=== PATIENT | male | born 1965 | race American Indian/Alaskan Native ===

== ENCOUNTER 2016-11-25 08:30 | Observation (INO) | payer MEDICAID ==
[2016-11-25] MEDS ORDERED: Sodium Chloride 0.9% 1,000 ML IV STA ×2 (09:22→10:10)
--- NOTE | 2016-11-25 09:27 | ED PDOC ---
Arrival/HPI - General Chief Complaint: Dizziness/Lightheaded Time Seen by Provider: 11/25/16 08:53 Historian: Patient - History of Present Illness Narrative History of Present Illness (Text): 11/25/16 09:05 A 51 year old male, whose past medical history includes hypertension and hyperlipidemia, presents to the emergency department complaining of dizziness for the past 6 days. Dizziness is described as the room spinning sensation and lightheadedness. Patient notes worsening of symptoms when standing up and better with rest. He notes a dry cough, non bloody watery diarrhea and decrease appetite for the past 6 days. Patient denies any nausea, vomiting, itchy throat , urinary symptoms or other complaints at this time. PMD: Dr. Cardozo Time/Duration: Other (6 days) Symptom Onset: Sudden Symptom Course: Unchanged Quality: Other Activities at Onset: Rest Modifying Factors (Text): worse when standing and better with rest Context: Home Associated Symptoms (Text): dry cough, decrease appetite and diarrhea Past Medical History - Provider Review Nursing Documentation Reviewed: Yes - Infectious Disease Hx of Infectious Diseases: None - Tetanus Immunization Tetanus Immunization: Unknown - Cardiac Hx Hypertension: Yes Hx Pacemaker: No - Pulmonary Hx Asthma: No Hx Chronic Obstructive Pulmonary Disease (COPD): No Hx Emphysema: No - Neurological HX Cerebrovascular Accident: No Hx Dementia: No Hx Seizures: No - Renal Hx Renal Disorder: No - Endocrine/Metabolic Hx Endocrine Disorders: No - Hematological/Oncological Hx Anemia: No Hx Cancer: No - Musculoskeletal/Rheumatological Hx Musculoskeletal Disorders: No - Gastrointestinal Hx Gastrointestinal Disorders: No - Psychiatric Hx Depression: No Hx Emotional Abuse: No Hx Physical Abuse: No Hx Substance Use: Yes (off and on) - Past Surgical History Past Surgical History: No Previous - Surgical History Hx Gastric Bypass Surgery: No - Suicidal Assessment Feels Threatened In Home Enviroment: No Family/Social History - Physician Review Nursing Documentation Reviewed: Yes Family/Social History: Unknown Family HX Smoking Status: marijuana Hx Alcohol Use: Yes Hx Substance Use: Yes (off and on) Substance used: marijuana Hx Substance Use Treatment: No Allergies/Home Meds Allergies/Adverse Reactions: Allergies Penicillins Allergy (Verified 11/25/16 08:55) RASH Home Medications: Home Meds Medication Instructions Recorded Confirmed Allopurinol [Zyloprim] 300 mg PO DAILY 11/25/16 11/25/16 Colchicine [Colchicine] 0.6 mg PO DAILY 11/25/16 11/25/16 Enalapril Maleate [Vasotec] 20 mg PO BID 11/25/16 11/25/16 Metoprolol Tartrate [Lopressor] 50 mg PO BID 11/25/16 11/25/16 Simvastatin [Zocor] 40 mg PO DAILY 11/25/16 11/25/16 Review of Systems - Physician Review All systems were reviewed & negative as marked: Yes - Review of Systems Respiratory: Cough. absent: Sputum Gastrointestinal: Diarrhea, Appetite Changes. absent: Nausea, Vomiting Genitourinary Male: absent: Dysuria, Frequency, Hematuria, Urinary Output Changes Neurological: Dizziness Physical Exam Vital Signs Reviewed: Yes Vital Signs Temp Pulse Resp BP Pulse Ox 11/25/16 13:30 70 16 112/70 98 11/25/16 11:37 65 16 106/65 97 11/25/16 08:49 97.7 F 105 H 20 79/56 L 100 Temperature: Afebrile Blood Pressure: Hypotensive Pulse: Tachycardic Respiratory Rate: Normal Appearance: Positive for: Well-Appearing, Non-Toxic, Comfortable Pain Distress: None Mental Status: Positive for: Alert and Oriented X 3 - Systems Exam Head: Present: Atraumatic, Normocephalic Pupils: Present: PERRL Extroacular Muscles: Present: EOMI Conjunctiva: Present: Normal Mouth: Present: Moist Mucous Membranes Neck: Present: Normal Range of Motion Respiratory/Chest: Present: Clear to Auscultation, Good Air Exchange. No: Respiratory Distress, Accessory Muscle Use Cardiovascular: Present: Normal S1, S2, Tachycardic. No: Murmurs Abdomen: Present: Normal Bowel Sounds. No: Tenderness, Distention, Peritoneal Signs Back: Present: Normal Inspection Upper Extremity: Present: Normal Inspection. No: Cyanosis, Edema Lower Extremity: Present: Normal Inspection. No: Edema Neurological: Present: GCS=15, CN II-XII Intact, Speech Normal, Motor Func Grossly Intact, Normal Sensory Function Skin: Present: Warm, Dry, Normal Color. No: Rashes Psychiatric: Present: Alert, Oriented x 3, Normal Insight, Normal Concentration Medical Decision Making ED Course and Treatment: 11/25/16 09:05 Impression: A 51 year old male with dizziness, cough, diarrhea and decrease appetite. Differential Diagnosis include but are not limited to: Viral illness vs. gastroenteritis vs. vertigo Plan: -- EKG -- Labs -- Pepcid and IV Fluids -- Reassess and disposition Progress Notes: EKG: Ordered, reviewed, and independently interpreted the EKG. Rate : 80 BPM Rhythm : NSR Interpretation : No ST-segment elevations or depressions, no T-wave inversions, normal intervals. 11/25/16 11:36 11:[address] Beasley, who is aware and agrees with the plan to place the patient in observation in Med/Surg for Dehydration, Acute renal failure and diarrhea. Abdomen/Pelvis CT ordered. I have discussed the results and plan with the patient, who expresses understanding. Patient given the opportunity to ask question, all questions were answered and there is agreement with the plan to be admitted to the hospital. - Lab Interpretations Lab Results: 11/25/16 09:35 11/25/16 09:35 Lab Results 11/25/16 11:30: Uric Acid 10.5 H, Total Creatine Kinase 461 H, CK-MB (CK-2) 2.2 , CK-MB (CK-2) % Cancelled, Triglycerides 403 H, Cholesterol 258 H, LDL Cholesterol Direct 121, HDL Cholesterol 26 L 11/25/16 11:30: Urine Osmolality 285, Ur Random Sodium 61 11/25/16 11:30: Urine Opiates Screen Negative, Urine Methadone Screen Negative, Ur Barbiturates Screen Negative, Ur Phencyclidine Scrn Negative, Ur Amphetamines Screen Negative, U Benzodiazepines Scrn Negative, U Oth Cocaine Metabols Negative, U Cannabinoids Screen Negative 11/25/16 11:00: Amylase 224 H 11/25/16 11:00: Alcohol, Quantitative < 10 11/25/16 09:35: Sodium 131 L, Potassium 4.6, Chloride 99, Carbon Dioxide 15 L, Anion Gap 22 H, BUN 51 H, Creatinine 3.9 H, Est GFR ( Amer) 20, Est GFR ( Non-Af Amer) 16, Random Glucose 107, Calcium 9.1, Total Bilirubin 0.8, AST 50, ALT 54, Alkaline Phosphatase 64, Total Protein 8.7 H, Albumin 4.3, Globulin 4.4 , Albumin/Globulin Ratio 1.0 L, Lipase 360 H 11/25/16 09:35: WBC 6.3, RBC 4.99, Hgb 16.5, Hct 46.6, MCV 93.4, MCH 33.1, MCHC 35.4, RDW 13.7, Plt Count 216, MPV 11.2 H, Gran % 55.8, Lymph % (Auto) 27.0, [place] % (Auto) 16.5 H, Eos % (Auto) 0.2 L, Baso % (Auto) 0.5, Gran # 3.50, Lymph # 1.7, [place] # 1.0 H, Eos # 0.0, Baso # 0.03 I have reviewed the lab results: Yes - RAD Interpretation Radiology Orders: 11/25/16 11:35 ABD & PELVIS PO CONTRAST ONLY [CT] Stat - Medication Orders Current Medication Orders: Acetaminophen (Tylenol 325mg Tab) 650 mg PO Q6H PRN PRN Reason: Fever >100.4 F Albuterol/Ipratropium (Duoneb 3 Mg/0.5 Mg (3 Ml) Ud) 3 ml IH Q2H PRN PRN Reason: Shortness of Breath Atorvastatin Calcium (Lipitor) 20 mg PO DIN IGGY Guaifenesin (Robitussin) 200 mg PO Q4H PRN PRN Reason: Cough and congestion Sodium Chloride (Sodium Chloride 0.9%) 1,000 mls @ 125 mls/hr IV .Q8H IGGY Last Admin: 11/25/16 14:57 Dose: 125 mls/hr Metronidazole (Flagyl) 500 mg PO Q8 IGGY PRN Reason: Protocol Ondansetron HCl (Zofran Inj) 4 mg IVP Q6H PRN PRN Reason: Nausea/Vomiting Pantoprazole Sodium (Protonix Inj) 40 mg IVP DAILY [facility] Discontinued Medications Atorvastatin Calcium (Lipitor) 10 mg PO DIN IGGY Famotidine (Pepcid) 20 mg IVP STAT STA Stop: 11/25/16 09:23 Last Admin: 11/25/16 09:53 Dose: 20 mg Sodium Chloride (Sodium Chloride 0.9%) 1,000 mls @ 1,000 mls/hr IV .Q1H STA Stop: 11/25/16 10:21 Last Admin: 11/25/16 09:53 Dose: 1,000 mls/hr Sodium Chloride (Sodium Chloride 0.9%) 1,000 mls @ 999 mls/hr IV .Q1H1M STA Stop: 11/25/16 11:10 Last Admin: 11/25/16 11:37 Dose: 999 mls/hr Sodium Chloride (Sodium Chloride 0.9%) 1,000 mls @ 100 mls/hr IV .Q10H IGGY Levofloxacin/Dextrose (Levaquin 500mg) 500 mg in 100 mls @ 100 mls/hr IVPB DAILY IGGY Iohexol (Omnipaque 240 (50 Ml)) Confirm Administered Dose 50 ml .ROUTE .STK-MED ONE Stop: 11/25/16 11:38 Iohexol (Omnipaque 350 100 Ml) Confirm Administered Dose 350 mg .ROUTE .STK-MED ONE Stop: 11/25/16 13:31 Non-Formulary Medication (Simvastatin [Zocor]) 40 mg PO DAILY IGGY - Scribe Statement The provider has reviewed the documentation as recorded by the Marina Fink Provider Scribe Attestation: All medical record entries made by the Marina were at my direction and personally dictated by me. I have reviewed the chart and agree that the record accurately reflects my personal performance of the history, physical exam, medical decision making, and the department course for this patient. I have also personally directed, reviewed, and agree with the discharge instructions and disposition. Disposition/Present on Arrival - Present on Arrival Any Indicators Present on Arrival: No History of DVT/PE: No History of Uncontrolled Diabetes: No Urinary Catheter: No History of Decub. Ulcer: No History Surgical Site Infection Following: None - Disposition Have Diagnosis and Disposition been Completed?: Yes Diagnosis: Enteritis, Acute renal failure Disposition: HOSPITALIZED Disposition Time: 11:36 Patient Plan: Observation Condition: FAIR
[2016-11-25 09:46] LABS: ADD MANUAL DIFF? NO
[2016-11-25 09:48] LABS: BASO # 0.03 [, K/mm3] (0.0-2.0); BASO % 0.5 % (0.0-3.0); EOS % 0.2 % (1.5-5.0); GRAN % 55.8 % (50.0-68.0); HEMATOCRIT 46.6 % (42.0-52.0); LYMPH # 1.7 (1.2-3.4); MEAN CELL VOLUME 93.4 fL (80.0-105.0); MEAN CORPUSCULAR HEMOGLOBIN 33.1 pg (25.0-35.0); MEAN CORPUSCULAR HGB CONC 35.4 g/dl (31.0-37.0); MEAN PLATELET VOLUME 11.2 fl (7.0-11.0); MONO % 16.5 % (1.0-6.0); PLATELET COUNT 216 [, 10^3/uL] (120.0-450.0); RED CELL DISTRIBUTION WIDTH 13.7 % (11.5-14.5); WHITE BLOOD COUNT 6.3 [, 10^3/ul] (4.5-11.0)
[2016-11-25 09:59] LABS: BILIRUBIN,TOTAL 0.8 mg/dL (0.2-1.3); CALCIUM 9.1 mg/dL (8.4-10.5); POTASSIUM 4.6 mmol/L (3.6-5.0); TOTAL PROTEIN 8.7 g/dL (5.8-8.3)
[2016-11-25] MEDS ORDERED: Iohexol 240 (50 ml) ONE (11:37)
[2016-11-25] MEDS ORDERED: Albuterol-Ipratrop 3 mg / 0.5 (3 ml) UD IH PRN (12:23)
[2016-11-25] MEDS ORDERED: guaiFENesin 200 mg/10 ml Syrup UD PO PRN (12:27)
[2016-11-25] MEDS ORDERED: Sodium Chloride 0.9% 1,000 ML IV SCH (12:30)
[2016-11-25] MEDS ORDERED: Iohexol 350 MG/100 ML VIAL ONE (13:30)
--- NOTE | 2016-11-25 13:46 | CP.PCM.HP ---
<Angela Reis - Last Filed: 11/25/16 14:23> History of Present Illness - History of Present Illness History of Present Illness: This is a 51Y M with PMH HTN, HLD, gout and medical non-compliance came to the ED for diarrhea and dizziness for the past 6 days. The dizziness began this week and was worse with standing up from sitting down. He states that he also had some URI symptoms, cough and congestion with yellow mucus. The patient saw Dr. Cardozo on November 23 for these symptoms. She prescribed him a Z-pack, Ventolin inhaler, Flonase, Phenergen, Zyrtec and Singulair, which he said did not help. The patient still has a cough with yellow mucus, but says the diarrhea has been bothering him more. He has had decreased appetite which he thinks is causing the diarrhea. He reports that he has been having diarrhea that is non-bloody and not dark in color. He has not had sick contacts or ate different food. He admits to taking 2 Ibuprofen every 6hrs and Aspirin as well. He reports having a colonoscopy in the past which was normal. He is not sure why he had a colonoscopy before the age of 51. He denies pain, n/v, fever, CP, SOB, vision changes, numbness/tingling, dysuria, hematuria. PMH: HTN, HLD, Gout PSH: Denies Home meds: Enalipril 200mg BID, Lopressor 50mg BID, Zocor 40mg qd, Colchicine 0.6mg qd, All: Penicillin- rash as child SH: Smokes 1ppd for >20yrs, EtOH use- but refuses to specify how much, drinks when he "feels like it", admits to marijuana use, denies other drug use. Lives with and son FH: Denies- parents but patient doesnt know how they ROS: + diarrhea, dizziness, cough PMD: Dr. Cardozo Present on Admission - Present on Admission Any Indicators Present on Admission: No Review of Systems - Review of Systems Review of Systems: As per HPI Past Patient History - Infectious Disease Hx of Infectious Diseases: None - Tetanus Immunizations Tetanus Immunization: Unknown - Past Social History Smoking Status: Heavy Smoker > 10 Cigarettes Daily Alcohol: Other (wont disclose how much he drinks) Drugs: Cannabis Home Situation {Lives}: With Family - CARDIAC Hx Hypertension: Yes Hx Pacemaker: No - PULMONARY Hx Asthma: No Hx Chronic Obstructive Pulmonary Disease (COPD): No Hx Emphysema: No - NEUROLOGICAL HX Cerebrovascular Accident: No Hx Dementia: No Hx Seizures: No - RENAL Hx Chronic Kidney Disease: No - ENDOCRINE/METABOLIC Hx Endocrine Disorders: No - HEMATOLOGICAL/ONCOLOGICAL Hx Anemia: No Hx Cancer: No - MUSCULOSKELETAL/RHEUMATOLOGICAL Hx Musculoskeletal Disorders: No - GASTROINTESTINAL Hx Gastrointestinal Disorders: No - PSYCHIATRIC Hx Depression: No Hx Emotional Abuse: No Hx Physical Abuse: No Hx Substance Use: Yes (off and on) - SURGICAL HISTORY Hx Gastric Bypass Surgery: No Meds Allergies/Adverse Reactions: Allergies Allergy/AdvReac Type Severity Reaction Status Date / Time Penicillins Allergy RASH Verified 11/25/16 08:55 Physical Exam - Constitutional Appears: No Acute Distress - Head Exam Head Exam: ATRAUMATIC, NORMAL INSPECTION, NORMOCEPHALIC - Eye Exam Eye Exam: Normal appearance Pupil Exam: NORMAL ACCOMODATION - ENT Exam ENT Exam: Mucous Membranes Dry - Respiratory Exam Respiratory Exam: Clear to Auscultation Bilateral, NORMAL BREATHING PATTERN. absent: Rales, Rhonchi, Wheezes - Cardiovascular Exam Cardiovascular Exam: REGULAR RHYTHM, +S1, +S2. absent: Gallop, Rubs, Systolic Murmur - GI/Abdominal Exam GI & Abdominal Exam: Hyperactive Bowel Sounds, Soft. absent: Mass, Rebound, Rigid, Tenderness - Extremities Exam Extremities exam: Positive for: normal inspection. Negative for: calf tenderness, pedal edema - Neurological Exam Neurological exam: Alert, CN II-XII Intact, Oriented x3 - Psychiatric Exam Psychiatric exam: Normal Affect, Normal Mood - Skin Skin Exam: Dry, Intact, Normal Color, Warm Results - Vital Signs Recent Vital Signs: Last Vital Signs Temp 97.7 F 11/25/16 08:49 Pulse 65 11/25/16 11:37 Resp 16 11/25/16 11:37 BP 106/65 11/25/16 11:37 Pulse Ox 97 11/25/16 11:37 - Labs Result Diagrams: 11/25/16 09:35 11/25/16 09:35 Labs: Laboratory Results - last 24 hr 11/25/16 11/25/16 11/25/16 09:35 09:35 11:00 WBC 6.3 RBC 4.99 Hgb 16.5 Hct 46.6 MCV 93.4 MCH 33.1 MCHC 35.4 RDW 13.7 Plt Count 216 MPV 11.2 H Gran % 55.8 Lymph % (Auto) 27.0 [place] % (Auto) 16.5 H Eos % (Auto) 0.2 L Baso % (Auto) 0.5 Gran # 3.50 Lymph # 1.7 [place] # 1.0 H Eos # 0.0 Baso # 0.03 Sodium 131 L Potassium 4.6 Chloride 99 Carbon Dioxide 15 L Anion Gap 22 H BUN 51 H Creatinine 3.9 H Est GFR ( Amer) 20 Est GFR (Non-Af Amer) 16 Random Glucose 107 Calcium 9.1 Total Bilirubin 0.8 AST 50 ALT 54 Alkaline Phosphatase 64 Total Protein 8.7 H Albumin 4.3 Globulin 4.4 Albumin/Globulin Ratio 1.0 L Amylase Lipase 360 H Alcohol, Quantitative < 10 11/25/16 11:00 WBC RBC Hgb Hct MCV MCH MCHC RDW Plt Count MPV Gran % Lymph % (Auto) [place] % (Auto) Eos % (Auto) Baso % (Auto) Gran # Lymph # [place] # Eos # Baso # Sodium Potassium Chloride Carbon Dioxide Anion Gap BUN Creatinine Est GFR ( Amer) Est GFR (Non-Af Amer) Random Glucose Calcium Total Bilirubin AST ALT Alkaline Phosphatase Total Protein Albumin Globulin Albumin/Globulin Ratio Amylase 224 H Lipase Alcohol, Quantitative - EKG Data EKG Interpreted by: Myself EKG shows normal: Sinus rhythm Rate: Normal Assessment & Plan - Assessment and Plan (Free Text) Assessment: This is a 51Y M with PMh HTN, HLD, gout who was admitted for diarrhea, dehydration and LEANDRO. Plan: 1. Diarrhea - afebrile, no leukocytosis - PCT ordered - Stool studies ordered (C.diff, occult blood, culture) - GI consulted - Flagyl - Tylenol prn fever, Zofran prn nausea, Protonix IV - NS@125 - CT abd/pelvis with contrast showed no acute findings - Amylase and Lipase both elevated 2. LEANDRO - Can be secondary to dehydration or Ibuprofen use - Cr: 3.9, baseline unknown - Urine electrolytes ordered - Uric acid elevated - NS@125 - Nephro consulted - Will continue to monitor electrolytes and replace as needed 3. Dizziness - secondary to dehydration - NS@125 - Will check orthostatics 4. URI - CXR showed no active disease - Robitussin prn cough - Duoneb prn SOB 5. HTN - Hypotensive on exam - Hold Home antihypertensives (Lopressor and Enalapril) 6. HLD - Lipid panel showed elevated cholesterol and triglycerides, low HDL - Continue Lipitor 20mg 7. Gout - Hold Allopurinol and Cholchicine for LEANDRO - Uric acid elevated GI ppx: Protonix DVT ppx: SCDs Case seen, reviewed and discussed with attending Kb Reis PGY1 - Date & Time Date: 11/25/16 Time: 14:46 <Alexus Beasley - Last Filed: 11/25/16 17:52> Results - Vital Signs Recent Vital Signs: Last Vital Signs Temp 98.5 F 11/25/16 16:40 Pulse 72 11/25/16 16:40 Resp 18 11/25/16 16:40 BP 110/70 11/25/16 16:40 Pulse Ox 98 11/25/16 16:00 - Labs Result Diagrams: 11/25/16 09:35 11/25/16 09:35 Labs: Laboratory Results - last 24 hr 11/25/16 16:02 Serum Osmolality 290 Attending/Attestation - Attestation I have personally seen and examined this patient.: Yes I have fully participated in the care of the patient.: Yes I have reviewed all pertinent clinical information: Yes Notes (Text): 11/25/16 17:48 attending note; Patient seen and examined with the resident in ER. Patient is a 51 year old male with PMH of HTN, HLD, gout and medical non- compliance came to the ED for diarrhea and dizziness for the past 6 days. patient was found to be hypotensive. IVF ordered. acute renal failure; mostly secondary to prerenal/diarrhea/GI volume loss. continue IVF. nephrology evaluation requested. hypertension; hold medication. CT abdomen and pelvis ordered. Stool studies. Recent history of antibiotics use for URI. stool for C.diff ordered. Chest x-ray with no active disease. Monitor renal function closely. active smoking; smoking cessation is strongly advised. Case discussed with PMD Dr. Cardozo in detail. 11/25/16 17:51
[2016-11-25 14:00] LABS: URIC ACID 10.5 mg/dL (3.5-8.5)
--- NOTE | 2016-11-25 14:21 | CT ---
PROCEDURE: CT Abdomen and Pelvis without intravenous contrast HISTORY: diarrhea r/o colitis COMPARISON: None. TECHNIQUE: Without contrast.. Contrast Dose: Radiation dose: Total exam DLP = 566 mGy-cm. This CT exam was performed using one or more of the following dose reduction techniques: Automated exposure control, adjustment of the mA and/or kV according to patient size, and/or use of iterative reconstruction technique. FINDINGS: LOWER THORAX: Unremarkable. LIVER: Unremarkable. No gross lesion or ductal dilatation. GALLBLADDER AND BILE DUCTS: Unremarkable. PANCREAS: Unremarkable. No gross lesion or ductal dilatation. SPLEEN: Unremarkable. ADRENALS: Unremarkable. No mass. KIDNEYS AND URETERS: Unremarkable. No hydronephrosis. No solid mass. There is a small nonobstructing 3 mm stone in the right kidney. VASCULATURE: Unremarkable. No aortic aneurysm. BOWEL: Unremarkable. No obstruction. No gross mural thickening. APPENDIX: Unremarkable. Normal appendix. PERITONEUM: Unremarkable. No free fluid. No free air. LYMPH NODES: Unremarkable. No enlarged lymph nodes. BLADDER: Unremarkable. REPRODUCTIVE: Unremarkable. BONES: No acute fracture. OTHER FINDINGS: None. IMPRESSION: No acute findings
--- NOTE | 2016-11-25 14:40 | CP.PCM.CON ---
History of Present Illness - History of Present Illness History of Present Illness: Initial Nephrology Consultation: Assessment: Acute Kidney Injury likely due to dehydration, hypovolemia and GI fluid loss hypovolemic hyponatremia likely due to predominantly water intake in setting of isotonic GI fluid loss Mild anion gap metabolic acidosis with superimposed NAGMA hx of Hypertension and hyperlipidemia, gout active Etoh, smokes cigarettes and marijuana Plan No acute need for renal replacement therapy at this time. hold BP meds. IV fluid hydration with normal saline. maintain hemodynamics stable. Monitor Input/Output, daily weights and renal function. repeat BMP in evening today also to assess serum Na Check urine analysis, urine osmol, urine creat, serum osmol, lipids for hyponatremia work up. smoking cessation, patient to abstain from alcohol/marijuana Dose meds/antibiotics for reduced GFR (<20). Avoid fleets enema/magnesium based laxatives. Avoid nephrotoxins/NSAIDs/ iodinated IV contrast (unless needed emergently) further renal work up depending upon urine studies and patient further course. Further work up for as per primary team. discussed Thanks for allowing me to participate in care of your patient. Will follow patient with you. Please call if any Qs Dr Keith Keith Office: [phone] Chief Complaint; Dizziness HPI: Pt is a 51 y/oM with hx of hypertension ( ? years), Gout and hyperlipidemia , also with active Etoh, smokes cigarettes and marijuana presented with complaints of dizziness, diarrrhoea and decreased oral intake for last few days. he says he has been feeling sick. Denies chest pain, palpitation, shortness of breath, leg swelling. no prior hx of kidney disease as per patient Denies blood or bubbles in urine.denies change in urine output Denies OTC/herbal meds but has been taking NSAIDs as Alleve for last few days No recent iodinated contrast exposure. had low BP in ER when came 79/56 HR 105 ROS: Constitutional Symptoms: Denies fever. No chills. No Recent Weight Changes Eyes: denies change in vision, denies watery eyes, denies double vision Ears/Nose/Mouth/Throat: Denies Abnormal Taste. No Bad breath or Bad Taste. Cardiovascular: No chest pain. There is no shortness of breath. No palpitations. Pulmonary: No shortness of breath or cough. Gastrointestinal: denies abdominal pain No nausea. No vomiting. c/o change in bowel habits as having diarrhoea. Denies Bleeding Genitourinary: No Change in force of strain when urinating. No increase in urinary frequency. No pain while urinating. Denies blood in urine. Neurological: Denies headaches. c/o dizziness. c/o loss of balance. c/o overall weakness, denies tingling/numbness Dermatological: No Rash or Bruising or ulcers. Psychiatric: Denies Anxiety. No depression. Denies hallucinations. Rheumatological: No joint pain. Denies Joint swelling. hx of gout Endocrine: c/o tiredness. Denies Fatigue and Heat/Cold Intolerance. Physical Examination: General Appearance: Comfortable, in no acute respiratory distress, co-operative . Vitals reviewed and noted as below BP in 110s when seen Head; Atraumatic, normocephalic ENT: no ulcers no thrush. Tongue is midline. Oropharynx: no rash or ulcers. EYES: Pupils are equal, round and reactive to light accommodation. Eye muscles and extraocular movement intact. Sclera is anicteric. Neck; supple no lymphadenopathy, no thyromegaly or bruit Lungs: Normal respiratory rate/effort. Breath sounds bilateral equal and clear Heart: Normal rate. s1s2 normal. No rub or gallop. Extremities: no edema. No varicose veins Neurological: Patient is alert, awake and oriented to person, place and time. No focal deficit. Strength bilateral appropriate and equal Skin: Warm and dry. Normal turgor. No rash. Palpitation: Normal elasticity for age Abdomen: Abdomen is soft. Bowel sounds +. There is no abdominal tenderness, no guarding/rigidity or organomegaly Psych: normal insight and normal affect/mood MSK: no joint tenderness or swelling. Digits and nails normal, no deformity : kidney or bladder not palpable Labs/imaging/EKG reviewed. Past medical history, past surgical history, family history, social history, allergy reviewed and noted as below lipase 360 Alb 4.3 uric acid 10.5 CPK [address] abdomen and cxr unremarkable Past Patient History - Infectious Disease Hx of Infectious Diseases: None - Tetanus Immunizations Tetanus Immunization: Unknown - Past Social History Smoking Status: marijuana - CARDIAC Hx Hypertension: Yes Hx Pacemaker: No - PULMONARY Hx Asthma: No Hx Chronic Obstructive Pulmonary Disease (COPD): No Hx Emphysema: No - NEUROLOGICAL HX Cerebrovascular Accident: No Hx Dementia: No Hx Seizures: No - RENAL Hx Chronic Kidney Disease: No - ENDOCRINE/METABOLIC Hx Endocrine Disorders: No - HEMATOLOGICAL/ONCOLOGICAL Hx Anemia: No Hx Cancer: No - MUSCULOSKELETAL/RHEUMATOLOGICAL Hx Musculoskeletal Disorders: No - GASTROINTESTINAL Hx Gastrointestinal Disorders: No - PSYCHIATRIC Hx Depression: No Hx Emotional Abuse: No Hx Physical Abuse: No Hx Substance Use: Yes (off and on) - SURGICAL HISTORY Hx Gastric Bypass Surgery: No Meds Allergies/Adverse Reactions: Allergies Allergy/AdvReac Type Severity Reaction Status Date / Time Penicillins Allergy RASH Verified 11/25/16 08:55 - Medications Medications: Current Medications Acetaminophen (Tylenol 325mg Tab) 650 mg PO Q6H PRN PRN Reason: Fever >100.4 F Albuterol/Ipratropium (Duoneb 3 Mg/0.5 Mg (3 Ml) Ud) 3 ml IH Q2H PRN PRN Reason: Shortness of Breath Atorvastatin Calcium (Lipitor) 20 mg PO DIN [facility]GG[facility] Guaifenesin (Robitussin) 200 mg PO Q4H PRN PRN Reason: Cough and congestion Sodium Chloride (Sodium Chloride 0.9%) 1,000 mls @ 125 mls/hr IV .Q8H IGG[facility] Metronidazole (Flagyl) 500 mg PO Q8 [facility] PRN Reason: Protocol Ondansetron HCl (Zofran Inj) 4 mg IVP Q6H PRN PRN Reason: Nausea/Vomiting Pantoprazole Sodium (Protonix Inj) 40 mg IVP DAILY [facility] Results - Vital Signs Recent Vital Signs: Last Vital Signs Temp 97.7 F 11/25/16 08:49 Pulse 65 11/25/16 11:37 Resp 16 11/25/16 11:37 BP 106/65 11/25/16 11:37 Pulse Ox 97 11/25/16 11:37 - Labs Result Diagrams: 11/25/16 09:35 11/25/16 09:35
[2016-11-25] MEDS: Sodium Chloride 0.9% 1,000 ML IV SCH (14:57)
--- NOTE | 2016-11-25 16:01 | RAD ---
HISTORY: Cough COMPARISON: No prior. TECHNIQUE: Chest PA and lateral FINDINGS: LUNGS: The lungs are well inflated and clear. PLEURA: No significant pleural effusion identified. No pneumothorax apparent. CARDIOVASCULAR: Normal. OSSEOUS STRUCTURES: No significant abnormalities. VISUALIZED UPPER ABDOMEN: Normal. OTHER FINDINGS: None. IMPRESSION: No active pulmonary disease.
[2016-11-25 16:57] VITALS: BMI 26.6
[2016-11-25] MEDS ORDERED: Pneumococcal 23-Valent Vaccine IM ONE (16:57)
--- NOTE | 2016-11-25 17:12 | CARD ---
APPROVED REPORT EKG Measurement Heart [id number] <Conclusion> Poor data quality, interpretation may be adversely affected Normal sinus rhythm Normal ECG
[2016-11-25 18:35] LABS: CALCIUM 8.3 mg/dL (8.4-10.5); POTASSIUM 4.8 mmol/L (3.6-5.0)
[2016-11-26] MEDS: Sodium Chloride 0.9% 1,000 ML IV SCH (08:08)
[2016-11-26 08:10] VITALS: RESP 20
[2016-11-26 08:13] LABS: ADD MANUAL DIFF? YES; HEMATOCRIT 37.8 % (42.0-52.0); MEAN CELL VOLUME 92.6 fL (80.0-105.0); MEAN CORPUSCULAR HEMOGLOBIN 32.4 pg (25.0-35.0); MEAN CORPUSCULAR HGB CONC 34.9 g/dl (31.0-37.0); MEAN PLATELET VOLUME 10.3 fl (7.0-11.0); PLATELET COUNT 179 [, 10^3/uL] (120.0-450.0); RED CELL DISTRIBUTION WIDTH 13.7 % (11.5-14.5); WHITE BLOOD COUNT 4.7 [, 10^3/ul] (4.5-11.0)
[2016-11-26 08:27] LABS: ALKALINE PHOSPHATASE 52 U/L (38-133); ALT/SGPT 41 U/L (7-56); AST/SGOT 32 U/L (15-59); BILIRUBIN,TOTAL 0.5 mg/dL (0.2-1.3); BLOOD UREA NITROGEN 25 mg/dL (7-21); CALCIUM 8.2 mg/dL (8.4-10.5); CARBON DIOXIDE 18 mmol/L (21-33); CHLORIDE 109 mmol/L (98-107); GFR AFRICAN-AMERICAN > 60; GLUCOSE,RANDOM 92 mg/dL (70-110); POTASSIUM 4.2 mmol/L (3.6-5.0); SODIUM 136 mmol/L (132-148); TOTAL PROTEIN 6.7 g/dL (5.8-8.3)
--- NOTE | 2016-11-26 08:28 | CP.PCM.PN ---
<BoyAngela carter - Last Filed: 11/26/16 10:00> Subjective - Date & Time of Evaluation Date of Evaluation: 11/26/16 Time of Evaluation: 08:24 - Subjective Subjective: Hospitalist Progress Note Patient seen and examined at bedside. There were no acute overnight events. Patient reports his diarrhea has improved. He has not had a BM since admission. He denies having any pain, n/v/d, numbness/tingling, dysuria, hematuria, fever or chills. He reports having a mild cough with yellow sputum. Objective - Vital Signs/Intake and Output Vital Signs (last 24 hours): Temp Pulse Resp BP Pulse Ox 98.0 F 84 20 119/69 99 11/26/16 08:00 11/26/16 08:00 11/26/16 08:00 11/26/16 08:00 11/26/16 08:00 Intake and Output: 11/26/16 11/26/16 06:59 18:59 Intake Total 840 Balance 840 - Medications Medications: Current Medications Acetaminophen (Tylenol 325mg Tab) 650 mg PO Q6H PRN PRN Reason: Fever >100.4 F Albuterol/Ipratropium (Duoneb 3 Mg/0.5 Mg (3 Ml) Ud) 3 ml IH Q2H PRN PRN Reason: Shortness of Breath Atorvastatin Calcium (Lipitor) 20 mg PO DIN [facility] Last Admin: 11/25/16 17:10 Dose: Not Given Guaifenesin (Robitussin) 200 mg PO Q4H PRN PRN Reason: Cough and congestion Sodium Chloride (Sodium Chloride 0.9%) 1,000 mls @ 125 mls/hr IV .Q8H [facility] Last Admin: 11/26/16 08:08 Dose: 125 mls/hr Metronidazole (Flagyl) 500 mg PO Q8 [facility] PRN Reason: Protocol Last Admin: 11/26/16 06:28 Dose: 500 mg Ondansetron HCl (Zofran Inj) 4 mg IVP Q6H PRN PRN Reason: Nausea/Vomiting Pantoprazole Sodium (Protonix Inj) 40 mg IVP DAILY [facility] - Labs Labs: 11/26/16 07:45 11/25/16 16:02 - Constitutional Appears: No Acute Distress - Head Exam Head Exam: ATRAUMATIC, NORMAL INSPECTION, NORMOCEPHALIC - Eye Exam Eye Exam: Normal appearance Pupil Exam: NORMAL ACCOMODATION - ENT Exam ENT Exam: Mucous Membranes Moist - Neck Exam Neck Exam: Full ROM - Respiratory Exam Respiratory Exam: Clear to Ausculation Bilateral, NORMAL BREATHING PATTERN. absent: Rales, Rhonchi, Wheezes - Cardiovascular Exam Cardiovascular Exam: REGULAR RHYTHM, +S1, +S2. absent: Gallop, Rubs, Murmur - GI/Abdominal Exam GI & Abdominal Exam: Soft, Normal Bowel Sounds. absent: Rigid, Tenderness, Mass , Rebound - Extremities Exam Extremities Exam: Normal Inspection. absent: Calf Tenderness, Pedal Edema - Neurological Exam Neurological Exam: Alert, Awake, CN II-XII Intact - Psychiatric Exam Psychiatric exam: Normal Affect, Normal Mood - Skin Skin Exam: Dry, Intact, Normal Color, Warm Assessment and Plan - Assessment and Plan (Free Text) Assessment: This is a 51Y M with PMh HTN, HLD, gout who was admitted for diarrhea, dehydration and LEANDRO. Plan: 1. Diarrhea- improved - CT abd/pelvis with contrast showed no acute findings - PCT and Stool studies pending (C.diff, occult blood, culture) - GI consulted - Continue Flagyl - Tylenol prn fever, Zofran prn nausea, Protonix IV - NS@125 2. LEANDRO - Resolved - Can be secondary to dehydration or Ibuprofen use - Cr: 1.3 - Continue IV Fluids - Nephro consulted - Will continue to monitor electrolytes and replace as needed 3. Dizziness- improved - secondary to dehydration - Continue IV hydration 4. URI - CXR showed no active disease - Afebrile, no leukocytosis - Robitussin prn cough - Duoneb prn SOB 5. Hx of HTN - Pt dehydrated, hypotensive - Hold Home antihypertensives (Lopressor and Enalapril)- will restart upon d/c 6. HLD - Chol: 258, Tri - Continue Lipitor 20mg - counseled patient on low fat diet 7. Gout - Hold Allopurinol and Cholchicine - will restart upon d/c - Uric acid elevated 8. Tobacco Use - Patient counseled on smoking cessation GI ppx: Protonix DVT ppx: SCDs Case seen, reviewed and discussed with attending Kb Reis PGY1 <Alexus Beasley - Last Filed: 11/26/16 16:09> Objective - Vital Signs/Intake and Output Vital Signs (last 24 hours): Temp Pulse Resp BP Pulse Ox 98.0 F 84 20 119/69 99 11/26/16 08:00 11/26/16 08:00 11/26/16 08:00 11/26/16 08:00 11/26/16 08:00 Intake and Output: 11/26/16 11/26/16 06:59 18:59 Intake Total 840 Balance 840 - Medications Medications: Current Medications Acetaminophen (Tylenol 325mg Tab) 650 mg PO Q6H PRN PRN Reason: Fever >100.4 F Albuterol/Ipratropium (Duoneb 3 Mg/0.5 Mg (3 Ml) Ud) 3 ml IH Q2H PRN PRN Reason: Shortness of Breath Atorvastatin Calcium (Lipitor) 20 mg PO DIN [facility] Last Admin: 11/25/16 17:10 Dose: Not Given Guaifenesin (Robitussin) 200 mg PO Q4H PRN PRN Reason: Cough and congestion Sodium Chloride (Sodium Chloride 0.9%) 1,000 mls @ 125 mls/hr IV .Q8H [facility] Last Admin: 11/26/16 08:08 Dose: 125 mls/hr Metronidazole (Flagyl) 500 mg PO Q8 [facility] PRN Reason: Protocol Last Admin: 11/26/16 14:04 Dose: 500 mg Ondansetron HCl (Zofran Inj) 4 mg IVP Q6H PRN PRN Reason: Nausea/Vomiting Pantoprazole Sodium (Protonix Inj) 40 mg IVP DAILY [facility] Last Admin: 11/26/16 10:18 Dose: 40 mg - Labs Labs: 11/26/16 07:45 11/26/16 07:45 Attending/Attestation - Attestation I have personally seen and examined this patient.: Yes I have fully participated in the care of the patient.: Yes I have reviewed all pertinent clinical information, including history, physical exam and plan: Yes Notes (Text): 11/26/16 16:06 attending note; Patient seen and examined with the resident in ER. Patient is a 51 year old male with PMH of HTN, HLD, gout and medical non- compliance came to the ED for diarrhea and dizziness for the past 6 days. patient was found to be hypotensive. currently stable. acute renal failure;resolved after treated with IVF. continue IVF. nephrology evaluation appreciated. hypertension; hold medication. CT abdomen and pelvis is negative. Stool studies ordered. stool for C.diff ordered. Chest x-ray with no active disease. active smoking; smoking cessation is strongly advised. upon discharge the patient will follow-up with PMD Dr. Cardozo.
[2016-11-26 08:33] LABS: URINE BILIRUBIN NEGATIVE (NEGATIVE); URINE BLOOD MODERATE (NEGATIVE); URINE GLUCOSE (UA) NEGATIVE (NEGATIVE); URINE KETONE NEGATIVE (NEGATIVE); URINE LEUKOCYTE ESTERASE NEGATIVE Leu/uL (NEGATIVE); URINE PROTEIN 30 mg/dL (<30 mg/dL); URINE UROBILINOGEN 0.2 E.U./dL (<1 E.U./dL)
[2016-11-26 08:35] LABS: URINE APPEARANCE SL CLOUDY (CLEAR); URINE COLOR YELLOW (YELLOW)
[2016-11-26 08:41] LABS: URINE WBC NEGATIVE /hpf (0-6)
[2016-11-26 09:22] LABS: ANISOCYTOSIS 1+; EOSINOPHIL 1 % (0.0-3.0); NEUTROPHIL 56 % (50.0-70.0); PLATELET ESTIMATE NORMAL (NORMAL); POIKILOCYTOSIS SLIGHT; TEAR DROP CELLS SLIGHT
[2016-11-26] MEDS ORDERED: levoFLOXacin 500 mg in D5W 500 MG/100 ML BAG IVPB SCH (10:00)
--- NOTE | 2016-11-26 12:26 | CP.PCM.PN ---
Subjective - Date & Time of Evaluation Date of Evaluation: 11/26/16 Time of Evaluation: 12:20 - Subjective Subjective: Follow up Nephrology Consultation Note Assessment: Acute Kidney Injury likely due to dehydration, hypovolemia and GI fluid loss: much improved with IV hydration hypovolemic hyponatremia likely due to predominantly water intake in setting of isotonic GI fluid loss: RESOLVED Mild anion gap metabolic acidosis with superimposed NAGMA: improved hx of Hypertension and hyperlipidemia, gout active Etoh, smokes cigarettes and marijuana microscopic hematuria Plan continue to hold BP meds. IV fluid hydration with normal saline. maintain hemodynamics stable. Monitor Input/Output, daily weights and renal function. smoking cessation, patient to abstain from alcohol/marijuana Dose meds/antibiotics for improved GFR (>60). Avoid fleets enema/magnesium based laxatives. Avoid nephrotoxins/NSAIDs/ iodinated IV contrast (unless needed emergently) consider urology eval for microscopic hematuria considering his active smoker status. can be done as outpatient. Further work up for as per primary team. Thanks for allowing me to participate in care of your patient. Please call if any Qs. f/up in office with me [address] Keith Keith ([address] [place] [address]) Office: [phone] Subjective: Noted events overnight. Patients feels okay. Denies chest pain, palpitation, shortness of breath, leg swelling. improved loose stool. asking for rehular diet Physical Examination: General Appearance: Comfortable, in no acute respiratory distress, co- operative. Vitals reviewed and noted as below Lungs: Normal respiratory rate/effort. Breath sounds bilateral equal and clear Heart: Normal rate. s1s2 normal. No rub or gallop. Extremities: no edema. Neurological: Patient is alert, awake and oriented to person, place and time. No focal deficit. Strength bilateral appropriate and equal Skin: Warm and dry. Normal turgor. No rash. Palpitation: Normal elasticity for age Abdomen: Abdomen is soft. Bowel sounds +. There is no abdominal tenderness, no guarding/rigidity or organomegaly : kidney or bladder not palpable Labs/imaging/EKG reviewed. Past medical history, past surgical history, family history, social history, allergy reviewed and noted as below Objective - Vital Signs/Intake and Output Vital Signs (last 24 hours): Temp Pulse Resp BP Pulse Ox 98.0 F 84 20 119/69 99 11/26/16 08:00 11/26/16 08:00 11/26/16 08:00 11/26/16 08:00 11/26/16 08:00 Intake and Output: 11/26/16 11/26/16 06:59 18:59 Intake Total 840 Balance 840 - Medications Medications: Current Medications Acetaminophen (Tylenol 325mg Tab) 650 mg PO Q6H PRN PRN Reason: Fever >100.4 F Albuterol/Ipratropium (Duoneb 3 Mg/0.5 Mg (3 Ml) Ud) 3 ml IH Q2H PRN PRN Reason: Shortness of Breath Atorvastatin Calcium (Lipitor) 20 mg PO DIN [facility] Last Admin: 11/25/16 17:10 Dose: Not Given Guaifenesin (Robitussin) 200 mg PO Q4H PRN PRN Reason: Cough and congestion Sodium Chloride (Sodium Chloride 0.9%) 1,000 mls @ 125 mls/hr IV .Q8H [facility] Last Admin: 11/26/16 08:08 Dose: 125 mls/hr Metronidazole (Flagyl) 500 mg PO Q8 [facility] PRN Reason: Protocol Last Admin: 11/26/16 06:28 Dose: 500 mg Ondansetron HCl (Zofran Inj) 4 mg IVP Q6H PRN PRN Reason: Nausea/Vomiting Pantoprazole Sodium (Protonix Inj) 40 mg IVP DAILY [facility] Last Admin: 11/26/16 10:18 Dose: 40 mg - Labs Labs: 11/26/16 07:45 11/26/16 07:45
[2016-11-26] MEDS ORDERED: Sodium Chloride 0.9% 1,000 ML IV SCH (16:09)
[2016-11-27 08:57] VITALS: BP 125/88; PULSE 70; TEMP 98.7; O2SAT 98
--- NOTE | 2016-11-27 11:31 | CP.PCM.DIS ---
<Angela Reis - Last Filed: 11/27/16 11:28> Provider - Provider Date of Admission: 11/25/16 11:36 Attending physician: Alexus Beasley MD Primary care physician: Dahiana Cardozo MD Consults: GI : Colin Nephro: Inna Time Spent in preparation of Discharge (in minutes): 35 Hospital Course - Lab Results Lab Results: Micro Results 11/26/16 10:00 Stool C. difficile Antigen & Toxin A,B (M - Final Most Recent Lab Values WBC 4.7 10^3/ul (4.5-11.0) D 11/26/16 07:45 RBC 4.08 10^6/uL (3.5-6.1) 11/26/16 07:45 Hgb 13.2 gm/dL (14.0-18.0) L 11/26/16 07:45 Hct 37.8 % (42.0-52.0) L 11/26/16 07:45 MCV 92.6 fL (80.0-105.0) 11/26/16 07:45 MCH 32.4 pg (25.0-35.0) 11/26/16 07:45 MCHC 34.9 g/dl (31.0-37.0) 11/26/16 07:45 RDW 13.7 % (11.5-14.5) 11/26/16 07:45 Plt Count 179 10^3/uL (120.0-450.0) 11/26/16 07:45 MPV 10.3 fl (7.0-11.0) 11/26/16 07:45 Gran % 55.8 % (50.0-68.0) 11/25/16 09:35 Lymph % (Auto) 27.0 % (22.0-35.0) 11/25/16 09:35 [place] % (Auto) 16.5 % (1.0-6.0) H 11/25/16 09:35 Eos % (Auto) 0.2 % (1.5-5.0) L 11/25/16 09:35 Baso % (Auto) 0.5 % (0.0-3.0) 11/25/16 09:35 Gran # 3.50 (1.4-6.5) 11/25/16 09:35 Lymph # 1.7 (1.2-3.4) 11/25/16 09:35 [place] # 1.0 (0.1-0.6) H 11/25/16 09:35 Eos # 0.0 (0.0-0.7) 11/25/16 09:35 Baso # 0.03 K/mm3 (0.0-2.0) 11/25/16 09:35 Neutrophils % (Manual) 56 % (50.0-70.0) 11/26/16 07:45 Lymphocytes % (Manual) 35 % (22.0-35.0) 11/26/16 07:45 Monocytes % (Manual) 8 % (1.0-6.0) H 11/26/16 07:45 Eosinophils % (Manual) 1 % (0.0-3.0) 11/26/16 07:45 Platelet Evaluation Normal (NORMAL) 11/26/16 07:45 Poikilocytosis (manual Slight 11/26/16 07:45 Anisocytosis (manual) 1+ 11/26/16 07:45 Tear Drop Cells Slight 11/26/16 07:45 Sodium 136 mmol/L (132-148) 11/26/16 07:45 Potassium 4.2 mmol/L (3.6-5.0) 11/26/16 07:45 Chloride 109 mmol/L (98-107) H 11/26/16 07:45 Carbon Dioxide 18 mmol/L (21-33) L 11/26/16 07:45 Anion Gap 13 (10-20) 11/26/16 07:45 BUN 25 mg/dL (7-21) H 11/26/16 07:45 Creatinine 1.3 mg/dL (0.5-1.4) 11/26/16 07:45 Est GFR ( Amer) > 60 11/26/16 07:45 Est GFR (Non-Af Amer) 58 11/26/16 07:45 Random Glucose 92 mg/dL (70-110) 11/26/16 07:45 Serum Osmolality 290 mosm/kg (271-296) 11/25/16 16:02 Uric Acid 10.5 mg/dL (3.5-8.5) H 11/25/16 11:30 Calcium 8.2 mg/dL (8.4-10.5) L 11/26/16 07:45 Total Bilirubin 0.5 mg/dL (0.2-1.3) 11/26/16 07:45 AST 32 U/L (15-59) 11/26/16 07:45 ALT 41 U/L (7-56) 11/26/16 07:45 Alkaline Phosphatase 52 U/L (38-133) 11/26/16 07:45 Total Creatine Kinase 461 U/L (35-230) H 11/25/16 11:30 CK-MB (CK-2) 2.2 ng/mL (0.0-3.6) 11/25/16 11:30 CK-MB (CK-2) % Cancelled 11/25/16 11:30 Total Protein 6.7 g/dL (5.8-8.3) 11/26/16 07:45 Albumin 3.3 g/dL (3.0-4.8) 11/26/16 07:45 Globulin 3.4 gm/dL 11/26/16 07:45 Albumin/Globulin Ratio 1.0 (1.1-1.8) L 11/26/16 07:45 Triglycerides 403 mg/dL (35-160) H 11/25/16 11:30 Cholesterol 258 mg/dL (130-200) H 11/25/16 11:30 LDL Cholesterol Direct 121 mg/dL (0-129) 11/25/16 11:30 HDL Cholesterol 26 mg/dL (29-60) L 11/25/16 11:30 Amylase 224 U/L (35-125) H 11/25/16 11:00 Lipase 360 U/L (23-300) H 11/25/16 09:35 Procalcitonin 0.10 NG/ML (0.19-0.49) L 11/25/16 16:02 Urine Color Yellow (YELLOW) 11/26/16 08:00 Urine Appearance Sl cloudy (CLEAR) 11/26/16 08:00 Urine pH 6.0 (4.7-8.0) 11/26/16 08:00 Ur Specific [place] 1.015 (1.005-1.035) 11/26/16 08:00 Urine Protein 30 mg/dL (<30 mg/dL) H 11/26/16 08:00 Urine Glucose (UA) Negative mg/dL (NEGATIVE) 11/26/16 08:00 Urine Ketones Negative mg/dL (NEGATIVE) 11/26/16 08:00 Urine Blood Moderate (NEGATIVE) H 11/26/16 08:00 Urine Nitrate Negative (NEGATIVE) 11/26/16 08:00 Urine Bilirubin Negative (NEGATIVE) 11/26/16 08:00 Urine Urobilinogen 0.2 E.U./dL (<1 E.U./dL) 11/26/16 08:00 Ur Leukocyte Esterase Negative [place]/uL (NEGATIVE) 11/26/16 08:00 Urine RBC 2 - 5 /hpf (0-2) 11/26/16 08:00 Urine WBC Negative /hpf (0-6) 11/26/16 08:00 Urine Osmolality 285 mosm/kg (50-645) 11/25/16 11:30 Ur Random Creatinine 93 mg/dL 11/26/16 08:00 Ur Random Sodium 61 meq/L 11/25/16 11:30 Urine Opiates Screen Negative (NEGATIVE) 11/25/16 11:30 Urine Methadone Screen Negative (NEGATIVE) 11/25/16 11:30 Ur Barbiturates Screen Negative (NEGATIVE) 11/25/16 11:30 Ur Phencyclidine Scrn Negative (NEGATIVE) 11/25/16 11:30 Ur Amphetamines Screen Negative (NEGATIVE) 11/25/16 11:30 U Benzodiazepines Scrn Negative (NEGATIVE) 11/25/16 11:30 U Oth Cocaine Metabols Negative (NEGATIVE) 11/25/16 11:30 U Cannabinoids Screen Negative (NEGATIVE) 11/25/16 11:30 Alcohol, Quantitative < 10 mg/dL (0-10) 11/25/16 11:00 - Hospital Course Hospital Course: This is a 51Y M with PMH HTN, HLD and gout admitted for dehydration and LEANDRO secondary to diarrhea. IV fluids and Flagyl was started. CT of abdomen/pelvis was negative. CXR showed no active disease. LEANDRO and diarrhea have both resolved since admission. Patient is instructed to avoid NSAID overuse and to use Tylenol for pain. He can continue his home medications and follow up with PMD, Dr. Cardozo in 1 week. He will finish 3 more days of PO Flagyl and also follow up with Dr. Keith ([employer]) as outpatient in 1 week. Patient is aware and agrees with the plan. Work note was provided. - Date & Time of H&P Date of H&P: 11/25/16 Time of H&P: 13:45 Discharge Exam - Head Exam Head Exam: ATRAUMATIC, NORMAL INSPECTION, NORMOCEPHALIC - Eye Exam Eye Exam: Normal appearance Pupil Exam: NORMAL ACCOMODATION - ENT Exam ENT Exam: Mucous Membranes Moist - Respiratory Exam Respiratory Exam: Clear to PA & Lateral, NORMAL BREATHING PATTERN, UNREMARKABLE. absent: Rhonchi, Wheezes - Cardiovascular Exam Cardiovascular Exam: REGULAR RHYTHM, +S1, +S2. absent: Gallop, Rubs, Systolic Murmur - GI/Abdominal Exam GI & Abdominal Exam: Normal Bowel Sounds, Soft, Unremarkable. absent: Mass, Rebound, Rigid, Tenderness - Extremities Exam Extremities exam: normal inspection - Neurological Exam Neurological exam: Alert, CN II-XII Intact, Oriented x3 - Psychiatric Exam Psychiatric exam: Normal Affect, Normal Mood - Skin Skin Exam: Dry, Intact, Normal Color, Warm Discharge Plan - Discharge Medications Prescriptions: metroNIDAZOLE [Flagyl] 500 mg PO Q8 #9 tab - Follow Up Plan Condition: FAIR Disposition: HOME/ ROUTINE Instructions: Dehydration (GEN), Acute Kidney Injury (GEN), Cigarette Smoking and Your Health (GEN), At-Risk Alcohol Use (GEN), Hypertension (GEN) Additional Instructions: 1. Follow up with Dr. Keith Keith 1 week after discharge [address] [place] [address] Office: [phone] 2. Follow up with Dr. Cardozo in 1 week 3. Finish 3 more days of PO Flagyl 4. Avoid NSAID use, Use tylenol for pain Referrals: Dahiana Cardozo MD [Primary Care Provider] - Keith Keith MD [Staff Provider] - <Alexus Beasley - Last Filed: 11/27/16 15:19> Provider - Provider Date of Admission: 11/25/16 11:36 Attending physician: Alexus Beasley MD Primary care physician: Dahiana Cardozo MD Hospital Course - Lab Results Lab Results: Micro Results 11/26/16 10:00 Stool Stool Culture - Preliminary LACTOSE COTTON FACTOR, SUB SELENITE BROTH. 11/26/16 10:00 Stool C. difficile Antigen & Toxin A,B (M - Final Most Recent Lab Values WBC 4.7 10^3/ul (4.5-11.0) D 11/26/16 07:45 RBC 4.08 10^6/uL (3.5-6.1) 11/26/16 07:45 Hgb 13.2 gm/dL (14.0-18.0) L 11/26/16 07:45 Hct 37.8 % (42.0-52.0) L 11/26/16 07:45 MCV 92.6 fL (80.0-105.0) 11/26/16 07:45 MCH 32.4 pg (25.0-35.0) 11/26/16 07:45 MCHC 34.9 g/dl (31.0-37.0) 11/26/16 07:45 RDW 13.7 % (11.5-14.5) 11/26/16 07:45 Plt Count 179 10^3/uL (120.0-450.0) 11/26/16 07:45 MPV 10.3 fl (7.0-11.0) 11/26/16 07:45 Gran % 55.8 % (50.0-68.0) 11/25/16 09:35 Lymph % (Auto) 27.0 % (22.0-35.0) 11/25/16 09:35 [place] % (Auto) 16.5 % (1.0-6.0) H 11/25/16 09:35 Eos % (Auto) 0.2 % (1.5-5.0) L 11/25/16 09:35 Baso % (Auto) 0.5 % (0.0-3.0) 11/25/16 09:35 Gran # 3.50 (1.4-6.5) 11/25/16 09:35 Lymph # 1.7 (1.2-3.4) 11/25/16 09:35 [place] # 1.0 (0.1-0.6) H 11/25/16 09:35 Eos # 0.0 (0.0-0.7) 11/25/16 09:35 Baso # 0.03 K/mm3 (0.0-2.0) 11/25/16 09:35 Neutrophils % (Manual) 56 % (50.0-70.0) 11/26/16 07:45 Lymphocytes % (Manual) 35 % (22.0-35.0) 11/26/16 07:45 Monocytes % (Manual) 8 % (1.0-6.0) H 11/26/16 07:45 Eosinophils % (Manual) 1 % (0.0-3.0) 11/26/16 07:45 Platelet Evaluation Normal (NORMAL) 11/26/16 07:45 Poikilocytosis (manual Slight 11/26/16 07:45 Anisocytosis (manual) 1+ 11/26/16 07:45 Tear Drop Cells Slight 11/26/16 07:45 Sodium 136 mmol/L (132-148) 11/26/16 07:45 Potassium 4.2 mmol/L (3.6-5.0) 11/26/16 07:45 Chloride 109 mmol/L (98-107) H 11/26/16 07:45 Carbon Dioxide 18 mmol/L (21-33) L 11/26/16 07:45 Anion Gap 13 (10-20) 11/26/16 07:45 BUN 25 mg/dL (7-21) H 11/26/16 07:45 Creatinine 1.3 mg/dL (0.5-1.4) 11/26/16 07:45 Est GFR ( Amer) > 60 11/26/16 07:45 Est GFR (Non-Af Amer) 58 11/26/16 07:45 Random Glucose 92 mg/dL (70-110) 11/26/16 07:45 Serum Osmolality 290 mosm/kg (271-296) 11/25/16 16:02 Uric Acid 10.5 mg/dL (3.5-8.5) H 11/25/16 11:30 Calcium 8.2 mg/dL (8.4-10.5) L 11/26/16 07:45 Total Bilirubin 0.5 mg/dL (0.2-1.3) 11/26/16 07:45 AST 32 U/L (15-59) 11/26/16 07:45 ALT 41 U/L (7-56) 11/26/16 07:45 Alkaline Phosphatase 52 U/L (38-133) 11/26/16 07:45 Total Creatine Kinase 461 U/L (35-230) H 11/25/16 11:30 CK-MB (CK-2) 2.2 ng/mL (0.0-3.6) 11/25/16 11:30 CK-MB (CK-2) % Cancelled 11/25/16 11:30 Total Protein 6.7 g/dL (5.8-8.3) 11/26/16 07:45 Albumin 3.3 g/dL (3.0-4.8) 11/26/16 07:45 Globulin 3.4 gm/dL 11/26/16 07:45 Albumin/Globulin Ratio 1.0 (1.1-1.8) L 11/26/16 07:45 Triglycerides 403 mg/dL (35-160) H 11/25/16 11:30 Cholesterol 258 mg/dL (130-200) H 11/25/16 11:30 LDL Cholesterol Direct 121 mg/dL (0-129) 11/25/16 11:30 HDL Cholesterol 26 mg/dL (29-60) L 11/25/16 11:30 Amylase 224 U/L (35-125) H 11/25/16 11:00 Lipase 360 U/L (23-300) H 11/25/16 09:35 Procalcitonin 0.10 NG/ML (0.19-0.49) L 11/25/16 16:02 Urine Color Yellow (YELLOW) 11/26/16 08:00 Urine Appearance Sl cloudy (CLEAR) 11/26/16 08:00 Urine pH 6.0 (4.7-8.0) 11/26/16 08:00 Ur Specific [place] 1.015 (1.005-1.035) 11/26/16 08:00 Urine Protein 30 mg/dL (<30 mg/dL) H 11/26/16 08:00 Urine Glucose (UA) Negative mg/dL (NEGATIVE) 11/26/16 08:00 Urine Ketones Negative mg/dL (NEGATIVE) 11/26/16 08:00 Urine Blood Moderate (NEGATIVE) H 11/26/16 08:00 Urine Nitrate Negative (NEGATIVE) 11/26/16 08:00 Urine Bilirubin Negative (NEGATIVE) 11/26/16 08:00 Urine Urobilinogen 0.2 E.U./dL (<1 E.U./dL) 11/26/16 08:00 Ur Leukocyte Esterase Negative [place]/uL (NEGATIVE) 11/26/16 08:00 Urine RBC 2 - 5 /hpf (0-2) 11/26/16 08:00 Urine WBC Negative /hpf (0-6) 11/26/16 08:00 Urine Osmolality 285 mosm/kg (50-645) 11/25/16 11:30 Ur Random Creatinine 93 mg/dL 11/26/16 08:00 Ur Random Sodium 61 meq/L 11/25/16 11:30 Urine Opiates Screen Negative (NEGATIVE) 11/25/16 11:30 Urine Methadone Screen Negative (NEGATIVE) 11/25/16 11:30 Ur Barbiturates Screen Negative (NEGATIVE) 11/25/16 11:30 Ur Phencyclidine Scrn Negative (NEGATIVE) 11/25/16 11:30 Ur Amphetamines Screen Negative (NEGATIVE) 11/25/16 11:30 U Benzodiazepines Scrn Negative (NEGATIVE) 11/25/16 11:30 U Oth Cocaine Metabols Negative (NEGATIVE) 11/25/16 11:30 U Cannabinoids Screen Negative (NEGATIVE) 11/25/16 11:30 Alcohol, Quantitative < 10 mg/dL (0-10) 11/25/16 11:00 Attending/Attestation - Attestation I have personally seen and examined this patient.: Yes I have fully participated in the care of the patient.: Yes I have reviewed all pertinent clinical information, including history, physical exam and plan: Yes Notes (Text): 11/27/16 15:17 attending note; Patient seen and examined with the resident in ER. Patient is a 51 year old male with PMH of HTN, HLD, gout and medical non- compliance came to the ED for diarrhea and dizziness for the past 6 days. patient was found to be hypotensive. currently stable. acute renal failure;resolved after treated with IVF. nephrology evaluation appreciated. hypertension; hold medication. CT abdomen and pelvis is negative. Stool for C. difficile is negative. GI evaluation with Dr. Shaw appreciated. Chest x-ray with no active disease. active smoking; smoking cessation is strongly advised. upon discharge the patient will follow-up with PMD Dr. Cardozo. Diagnosis; Diarrhea Acute renal failure Dehydration Active smoking 11/27/16 15:18
== END 2016-11-27 12:00 | disposition home or self-care (01) ==
LOC: ED 08:30 → ERH 11:36 → 5RSO 14:28
PROVIDERS: ADMIT Internal Medicine; ATTEND Internal Medicine
DX: N17.9 Acute kidney failure, unspecified (principal); E86.0 Dehydration; I10 Essential (primary) hypertension; E78.5 Hyperlipidemia, unspecified; E87.2 Acidosis; E87.1 Hypo-osmolality and hyponatremia; E86.1 Hypovolemia; M10.9 Gout, unspecified; F17.210 Nicotine dependence, cigarettes, uncomplicated; Z91.19 Patient's noncompliance with other medical treatment and regimen; F12.90 Cannabis use, unspecified, uncomplicated; I95.9 Hypotension, unspecified; R31.29 Other microscopic hematuria; R19.7 Diarrhea, unspecified
CPT/HCPCS: 36415; 71020; 74176; 80053; 80061; 80320; 80324; 80345; 80346; 80349; 80353; 80358; 80361; 81001; 82150; 82550; 82553; 82570; 83690; 83930; 83935; 83992; 84145; 84300; 84550; 85025; 87045; 87324; 93005; 96361; 96374; 96375; 99285; C9113; G0378; J7040; Q9966